=== PATIENT | male | born 1955 | race Caucasian/White ===

== ENCOUNTER → 2024-03-07 07:57 | Outpatient (CLI) | payer MEDICARE, OTHER, SELFPAY ==
--- NOTE | 2024-03-07 | DI.RAD.S_ITS ---
PROCEDURE: XR FOOT RT MIN 3V INDICATIONS: Metatarsalgia TECHNIQUE: 3 views of the foot were acquired. COMPARISON: [facility], , XR FOOT LT MIN 3V, 03/07/2024, 8:14. FINDINGS: Bones: No fractures or dislocations. Mild 1st MTP joint space narrowing. Normal alignment on weight-bearing view. No suspicious bony lesions. Soft tissues: No tibiotalar joint effusion. Achilles tendon appears normal. IMPRESSION: 1. No acute bony abnormality. 2. Mild 1st MTP joint space narrowing. Dictated by: Diana Smith M.D. on 03/07/2024 at 14:40 Approved by: Diana Smith M.D. on 03/07/2024 at 14:41
--- NOTE | 2024-03-07 | DI.RAD.S_ITS ---
PROCEDURE: XR FOOT LT MIN 3V INDICATIONS: Metatarsalgia TECHNIQUE: 3 views of the foot were acquired. COMPARISON: [facility], , XR FOOT RT MIN 3V, 03/07/2024, 8:14. FINDINGS: Bones: No fractures or dislocations. Normal alignment on weight-bearing view. Joint spaces are maintained. No suspicious bony lesions. Soft tissues: No tibiotalar joint effusion. Achilles tendon appears normal. IMPRESSION: No acute bony abnormality. No significant degenerative changes. Dictated by: Diana Smith M.D. on 03/07/2024 at 14:41 Approved by: Diana Smith M.D. on 03/07/2024 at 14:42
== END ==
LOC: RAD 08:01
PROVIDERS: PCP Family Medicine; Referring Provider Podiatrist Foot & Ankle Surgery; Visit Provider Podiatrist Foot & Ankle Surgery
DX: M77.41 Metatarsalgia, right foot (principal); M77.42 Metatarsalgia, left foot
CPT/HCPCS: 73630

== ENCOUNTER 2024-07-01 14:16 | Emergency (ER) | payer MEDICARE, OTHER, SELFPAY ==
[2024-07-01] VITALS (13 sets, daily range): BP systolic 144–170; BP diastolic 76–95; PULSE 85–107; RESP 13–22; TEMP 36.9; O2SAT 95–100; BMI 29.0
--- NOTE | 2024-07-01 14:25 | DI.RAD.S_ITS ---
PROCEDURE: XR CHEST 1V INDICATIONS: chest pain TECHNIQUE: One view of the chest was acquired. COMPARISON: None. FINDINGS: Surgical changes and devices: None. Lungs and pleura: Lungs are clear. No pleural effusions or pneumothorax. Mediastinum: Mediastinal contours appear normal. Heart size is normal. Bones and chest wall: No suspicious bony lesions. Overlying soft tissues appear unremarkable. IMPRESSION: No acute cardiopulmonary abnormality is seen. Dictated by: Juvencio Dubon M.D. on 07/01/2024 at 15:22 Approved by: Juvencio Dubon M.D. on 07/01/2024 at 15:22
--- NOTE | 2024-07-01 14:40 | EKG_ITS ---
[id number], [place] [address] Test Date: 2024-07-01 Pat Name: Lai Lai Department: [facility] Room: Gender: Male Drier Operator: ASHLEY : 1955 Requested By: Order Number: [id number] Reading MD: Preet Larios MD Measurements Intervals [place] Rate: 88 P: 53 ME: 150 QRS: 19 QRSD: 94 T: 15 QT: 352 QTc: 425 Interpretive Statements Normal sinus rhythm with sinus arrhythmia Electronically Signed On 07-01-2024 15:08:49 PST by Preet Larios MD
[2024-07-01 15:06] LABS: Prothrombin Time 11.5 SECONDS (9.4-12.5)
[2024-07-01 15:09] LABS: PTT Partial Thromboplastin Tim 34 SECONDS (25.1-36.5)
[2024-07-01 15:14] LABS: Alanine Aminotransferase 35 IU/L (<50); Albumin 4.7 g/dL (3.5-5.0); Albumin Globulin Ratio 1.4 (1.0-2.8); Alkaline Phosphatase 53 U/L (38-126); Aspartate Aminotransferase 30 IU/L (17-59); BUN Creatinine Ratio 16.1 (6-22); Bilirubin Total 0.6 mg/dL (0.2-1.3); Blood Urea Nitrogen 14 mg/dL (9-20); Calcium 9.9 mg/dL (8.4-10.2); Carbon Dioxide 23 mmol/L (22-32); Chloride 106 mmol/L (98-107); Creatine Kinase 145 U/L (55-170); Estimated Glomerular Filt Rate > 60 mL/min (>60); Globulin 3.4 g/dL (1.7-4.1); Glucose 118 mg/dL (80-110); HEMOLYSIS < 15 (0-50); Lipase 66 U/L (23-300); Magnesium 1.6 mg/dL (1.6-2.3); Potassium 3.8 mmol/L (3.4-5.1); Sodium 140 mmol/L (137-145); Total Protein 8.1 g/dL (6.3-8.2)
--- NOTE | 2024-07-01 15:18 | DI.CT.S_ITS ---
PROCEDURE: CT ANGIO HEAD AND NECK INDICATIONS: dizziness, greater than 12 hours TECHNIQUE: After the administration of intravenous contrast, 1 mm thick sections acquired from the aortic arch through the [place] of [place]. 3-dimensional eompinn-wgqegwnfy-ppishsjmlj (MIP) and/or volume rendering reformats were acquired of the central intracranial vasculature and neck separately. For radiation dose reduction, the following was used: automated exposure control, adjustment of mA and/or kV according to patient size. COMPARISON: [facility], CT, CT HEAD/BRAIN WO CON, 07/01/2024, 16:01. FINDINGS: Image quality: Diagnostic. BRAIN: CSF spaces: Ventricles are normal in size and shape. Basal cisterns are patent. No extra-axial fluid collections. Brain: No significant abnormality of the brain can be seen. Skull and face: Calvarium and facial bones appear intact, without suspicious lesions. Orbits appear normal. Sinuses: Sinuses and mastoids are clear. HEAD CT ANGIOGRAPHY: Anterior circulation: Intracranial internal carotid arteries are normal in size and flow. The flow within the paired anterior cerebral arteries is normal and symmetric. The flow within the middle cerebral arteries is normal and symmetric. The anterior communicating artery is seen. No aneurysms are seen. Posterior circulation: Visualized portions of the vertebral arteries demonstrate normal caliber, and join to form a normal appearing basilar artery. Flow within the posterior cerebral arteries is normal and symmetric. No aneurysms are seen. NECK CT ANGIOGRAPHY: Carotid system: The great vessels demonstrate a conventional anatomy as they arise from the aortic arch. The origins of the common carotid arteries appear patent. The common carotid arteries demonstrate normal caliber and courses. The bifurcation regions are both widely patent. Mild bilateral proximal internal carotid artery stenotic disease, less than 50%. Posterior circulation: The origins of the vertebral arteries both appear widely patent. The more superior extracranial portions of both vertebral arteries also demonstrate normal courses and calibers. They join to form a normal appearing basilar artery. Soft tissues: Visualized neck soft tissues demonstrate no suspicious abnormalities. Bones: No suspicious bony lesions. Visualized cervical spine appears normally aligned. IMPRESSION: No significant intracranial arterial abnormality is seen. No significant abnormality is seen within the arteries of the neck. Any quantitative measurements of stenosis were performed using NASCET criteria. Dictated by: Juvencio Dubon M.D. on 07/01/2024 at 16:20 Approved by: Juvencio Dubon M.D. on 07/01/2024 at 16:22
--- NOTE | 2024-07-01 15:18 | DI.CT.S_ITS ---
PROCEDURE: CT HEAD/BRAIN WO CON INDICATIONS: dizziness, greater than 12 hours TECHNIQUE: Noncontrast 4.5 mm thick angled axial sections acquired from the foramen magnum to the vertex, with coronal and sagittal reformats. For radiation dose reduction, the following was used: automated exposure control, adjustment of mA and/or kV according to patient size. COMPARISON: None. FINDINGS: Image quality: Diagnostic. CSF spaces: Basal cisterns are patent. No extra-axial fluid collections. The ventricles are symmetric in size and shape. Brain: No intracranial bleeds or masses. There is cerebral volume loss for age, with resultant ventricular and sulcal prominence. There are periventricular and deep white matter chronic small vessel ischemic changes. There is intracranial internal carotid artery atherosclerosis. Skull and face: Calvarium and visualized facial bones appear intact, without suspicious lesions. Sinuses: Visualized sinuses and mastoids are clear. IMPRESSION: No acute intracranial pathology. Dictated by: Juvencio Dubon M.D. on 07/01/2024 at 16:19 Approved by: Juvencio Dubon M.D. on 07/01/2024 at 16:20
[2024-07-01 15:25] LABS: NT-proBNP (BNP-Adult 18+) 102 pg/mL (<125); Troponin I < 0.012 ng/mL (0.01-0.034)
[2024-07-01 15:28] LABS: Add Manual Diff / Slide Review NO; Basophils Absolute Auto 0 /uL (0-100); Basophils Percent Auto 0.3 % (0-2); Eosinophils Absolute Auto 0 /uL (0-450); Eosinophils Percent Auto 0.2 % (2-4); Hematocrit 43.3 % (41-53); Hemoglobin 14.8 g/dL (13.5-17.5); Lymphocytes Absolute Auto 1200 /uL (1100-4500); Lymphocytes Percent Auto 15.1 % (25-40); Mean Corpuscular HGB Conc 34.1 % (30-36); Mean Corpuscular Hemoglobin 32.3 PG (26-34); Mean Corpuscular Volume 94.7 fL (80-100); Monocytes Absolute Auto 600 /uL (0-900); Monocytes Percent Auto 7.4 % (3-14); Neutrophils Absolute Auto 6100 /uL (1500-7000); Platelet Count 206 X10^3/uL (150-400); Red Blood Cell Count 4.58 X10^6/uL (4.5-5.9); Red Cell Distribution Width 13.2 % (11.6-14.8); White Blood Cell Count 7.9 X10^3/uL (4.5-11.0)
--- NOTE | 2024-07-01 17:19 | ED_ITS ---
HPI - Dizziness General Chief Complaint: Dizziness Stated Complaint: HBP, rapid pulse, dizziness Time Seen by Provider: 07/01/24 15:17 Source: patient, RN notes reviewed and old records reviewed Mode of arrival: Ambulatory Limitations: no limitations History of Present Illness HPI Narrative: 69-year-old male presents with complaint of sensation of dizziness. Patient states yesterday he woke up when he rolled over in bed and felt like the room was spinning. He states that is like it is spinning and front of his eyes. Movements such as bending over and moving his head side to side quickly exacerbate his symptoms. Yesterday only lasted for a couple hours and then resolved. This morning when he woke up had recurrent symptoms that has been more persistent throughout the day. He has been able to perform physical activity including mowing his lawn but continued to have symptoms. Denies headache, denies vision changes, no numbness, tingling or weakness. Feels a little off balance but able to ambulate. Denies any chest pain or shortness of breath. Has had some nausea with symptoms are intense. Denies any vomiting. Has had some mild diarrhea recently. No cough cold or cough symptoms. No hearing changes. Patient has not had similar symptoms in the past. States he takes fluoxetine daily. Has a history of prior appendectomy and had angioplasty of his renal artery remotely. No known drug allergies. No tobacco, has 4 beers daily, no recreational drugs besides occasional THC. Patient's primary care physician is Dr. Bonner. He is accompanied by his family. Related Data Home Medications Medication Instructions Recorded Confirmed floxetine PO 03/14/21 03/14/21 Previous Rx's Medication Instructions Recorded benzonatate 100 mg capsule 100 mg PO TID PRN cough #21 caps 03/14/21 (Usama Tejeda) meclizine 25 mg chewable tablet 25 mg PO QID PRN dizziness #10 tabs 07/01/24 Allergies Allergy/AdvReac Type Severity Reaction Status Date / Time No Known Drug Allergies Allergy Verified 07/01/24 14:19 Review of Systems Review of Systems ROS Unobtainable: All systems reviewed & are unremarkable except as noted in HPI and below Patient History Social History Smoking Status: Never smoker Smoking Status: Never smoker alcohol intake frequency: 3 or more drinks per day Alcohol type: beer Substance Use Type: marijuana Exam Narrative Exam Narrative: GEN: well nourished, well appearing male, alert and oriented x 3, patient appears to be in mild distress. HEENT: Atraumatic, pupils are equal round reactive to light, extraocular movements are intact, nares are clear, TMs are clear with no fluid, there is no conjunctival pallor. Throat is clear without any exudates, erythema, tonsillar enlargement or uvular deviation, no facial droop HEART: Regular rate and rhythm without murmur, clicks, rubs. Pulses are equal in upper and lower extremities LUNGS:Lungs clear to auscultation, no wheezes, rales, crackles, chest moves symmetrically ABD:bowel sounds normal, soft, non-tender, no guarding, rebound, rigidity, no masses noted, no hepatosplenomegaly :No CVA tenderness MSCL: Non-tender, no muscle atrophy, muscles strength 5/5 upper and lower extremities, full range of motion, normal gait NEURO:CN 2-12 intact, sensation normal, finger nose finger test normal, heel lang test normal. Initial Vital Signs Initial Vital Signs: Vital Signs Temperature 98.4 F 07/01/24 14:19 Pulse Rate 106 H 07/01/24 14:19 Respiratory Rate 17 07/01/24 14:19 Blood Pressure 162/89 H 07/01/24 14:19 Pulse Oximetry 100 07/01/24 14:19 Oxygen Delivery Method Room Air 07/01/24 14:19 Course Orders Ordered: ED Orders 07/01/24 14:25 XR chest 1V Stat EKG-12 Lead Stat 07/01/24 14:48 Comprehensive Metabolic Panel Stat Lipase Stat Magnesium Stat NT-proBNP (BNP-Adult 18+) Stat PTT Partial Thromboplastin Malik Stat Prothrombin Time INR Stat Troponin & CK Cardiac Panel Stat 07/01/24 15:08 Complete Blood Count AUTO DIFF Stat 07/01/24 15:18 CT angio head and neck Stat CT head/brain wo con Stat Discontinued Medications Meclizine HCl (Meclizine Hcl 12.5 Mg Tablet) 50 mg PO NOW ONE Stop: 07/01/24 17:41 Last Admin: 07/01/24 18:11 Dose: 50 mg Documented By: MADDIE Vital Signs Vital signs: Vital Signs - 8 hr 07/01/24 14:19 07/01/24 14:31 07/01/24 15:00 Temperature 98.4 F Pulse Rate 106 H 107 H 91 H Respiratory Rate 17 19 15 Blood Pressure 162/89 H Pulse Oximetry 100 97 95 Oxygen Delivery Method Room Air 07/01/24 15:01 07/01/24 15:01 07/01/24 15:30 Temperature Pulse Rate 91 H 85 Respiratory Rate 21 16 Blood Pressure 161/95 H Pulse Oximetry 96 96 Oxygen Delivery Method Room Air 07/01/24 15:30 07/01/24 15:46 07/01/24 15:46 Temperature Pulse Rate 88 Respiratory Rate 16 Blood Pressure 162/83 H 168/76 H Pulse Oximetry 97 Oxygen Delivery Method 07/01/24 16:05 07/01/24 16:30 07/01/24 16:51 Temperature Pulse Rate 98 H 93 H Respiratory Rate 22 14 Blood Pressure 144/89 H Pulse Oximetry 97 95 Oxygen Delivery Method 07/01/24 16:51 07/01/24 17:00 07/01/24 17:00 Temperature Pulse Rate 89 91 H Respiratory Rate 22 Blood Pressure 170/87 H Pulse Oximetry 96 95 Oxygen Delivery Method 07/01/24 17:07 07/01/24 17:07 07/01/24 17:30 Temperature Pulse Rate 89 87 Respiratory Rate 18 22 Blood Pressure 156/91 H Pulse Oximetry 97 96 Oxygen Delivery Method 07/01/24 18:00 Temperature Pulse Rate 90 Respiratory Rate 13 Blood Pressure Pulse Oximetry 96 Oxygen Delivery Method MDM - Dizziness Lab Data 07/01/24 15:08 07/01/24 14:48 Labs: Lab Results 07/01/24 07/01/24 Range/Units 14:48 15:08 WBC 7.9 (4.5-11.0) X10^3/uL RBC 4.58 (4.5-5.9) X10^6/uL Hgb 14.8 (13.5-17.5) g/dL Hct 43.3 (41-53) % MCV 94.7 (80-100) fL MCH 32.3 (26-34) PG MCHC 34.1 (30-36) % RDW 13.2 (11.6-14.8) % Plt Count 206 (150-400) X10^3/uL Neut % (Auto) 77.0 H (50-75) % Lymph % (Auto) 15.1 L (25-40) % Reeves % (Auto) 7.4 (3-14) % Eos % (Auto) 0.2 L (2-4) % Baso % (Auto) 0.3 (0-2) % Neut # (Auto) 6100 (7159-2964) /uL Lymph # (Auto) 1200 (0596-2397) /uL Reeves # (Auto) 600 (0-900) /uL Eos # (Auto) 0 (0-450) /uL Baso # (Auto) 0 (0-100) /uL PT 11.5 (9.4-12.5) SECONDS INR 1.0 (0.9-1.3) APTT 34 (25.1-36.5) SECONDS Sodium 140 (137-145) mmol/L Potassium 3.8 (3.4-5.1) mmol/L Chloride 106 (98-107) mmol/L Carbon Dioxide 23 (22-32) mmol/L BUN 14 (9-20) mg/dL Creatinine 0.87 (0.66-1.25) mg/dL Estimated GFR > 60 (>60) mL/min BUN/Creatinine Ratio 16.1 (6-22) Glucose 118 H (80-110) mg/dL Calcium 9.9 (8.4-10.2) mg/dL Magnesium 1.6 (1.6-2.3) mg/dL Total Bilirubin 0.6 (0.2-1.3) mg/dL AST 30 (17-59) IU/L ALT 35 (<50) IU/L Alkaline Phosphatase 53 (38-126) U/L Total Creatine Kinase 145 (55-170) U/L Troponin I < 0.012 (0.01-0.034) ng/mL NT-Pro-B Natriuret Pep 102 (<125) pg/mL Total Protein 8.1 (6.3-8.2) g/dL Albumin 4.7 (3.5-5.0) g/dL Globulin 3.4 (1.7-4.1) g/dL Albumin/Globulin Ratio 1.4 (1.0-2.8) Lipase 66 (23-300) U/L Imaging Data Chest x-ray: Radiologist's Impression: Close Head/Neck CTA (Signed) Juvencio Dubon - 07/01/[address] (Signed) Juvencio Dubon - 07/01/24 Chest X-Ray (Signed) Juvencio Dubon - 07/01/24 Foot X-Ray (Signed) Diana Smith - 03/07/24 Foot X-Ray (Signed) Diana Smith - 03/07/24 Launch?Image [address] [address] XRay Report Signed Patient: Lai Lai MR#: [id number] : 1955 Acct:[id number] Age/Sex: 69 / M Date of Service: 07/01/24 Loc: ED Accession Number: [id number] Procedure: XR chest 1V Ordering Provider: Lesvia Mak D.O. PROCEDURE: XR CHEST 1V INDICATIONS: chest pain TECHNIQUE: One view of the chest was acquired. COMPARISON: None. FINDINGS: Surgical changes and devices: None. Lungs and pleura: Lungs are clear. No pleural effusions or pneumothorax. Mediastinum: Mediastinal contours appear normal. Heart size is normal. Bones and chest wall: No suspicious bony lesions. Overlying soft tissues appear unremarkable. IMPRESSION: No acute cardiopulmonary abnormality is seen. Dictated by: Juvencio Dubon M.D. on 07/01/2024 at 15:22 Approved by: Juvencio Dubon M.D. on 07/01/2024 at 15:22 CT scan - head: Radiologist's Impression: [address] [address] [address] Scan Report Signed Patient: Lai Lai MR#: [id number] : 1955 Acct:[id number] Age/Sex: 69 / M Date of Service: 07/01/24 Loc: ED Accession Number: [id number] Procedure: CT head/brain wo con Ordering Provider: Lesvia Mak D.O. PROCEDURE: CT HEAD/BRAIN WO CON INDICATIONS: dizziness, greater than 12 hours TECHNIQUE: Noncontrast 4.5 mm thick angled axial sections acquired from the foramen magnum to the vertex, with coronal and sagittal reformats. For radiation dose reduction, the following was used: automated exposure control, adjustment of mA and/or kV according to patient size. COMPARISON: None. FINDINGS: Image quality: Diagnostic. CSF spaces: Basal cisterns are patent. No extra-axial fluid collections. The ventricles are symmetric in size and shape. Brain: No intracranial bleeds or masses. There is cerebral volume loss for age, with resultant ventricular and sulcal prominence. There are periventricular and deep white matter chronic small vessel ischemic changes. There is intracranial internal carotid artery atherosclerosis. Skull and face: Calvarium and visualized facial bones appear intact, without suspicious lesions. Sinuses: Visualized sinuses and mastoids are clear. IMPRESSION: No acute intracranial pathology. Dictated by: Juvencio Dubon M.D. on 07/01/2024 at 16:19 Approved by: Juvencio Dubon M.D. on 07/01/2024 at 16:20 CTA - brain/neck: Radiologist's Impression: [place] [address] CT Scan Report Signed Patient: Lai Lai MR#: [id number] : 1955 Acct:[id number] Age/Sex: 69 / M Date of Service: 07/01/24 Loc: ED Accession Number: [id number] Procedure: CT angio head and neck Ordering Provider: Lesvia Mak D.O. PROCEDURE: CT ANGIO HEAD AND NECK INDICATIONS: dizziness, greater than 12 hours TECHNIQUE: After the administration of intravenous contrast, 1 mm thick sections acquired from the aortic arch through the [place] of [place]. 3-dimensional qyjagds-cfwdjzdjc-qwpltqlkva (MIP) and/or volume rendering reformats were acquired of the central intracranial vasculature and neck separately. For radiation dose reduction, the following was used: automated exposure control, adjustment of mA and/or kV according to patient size. COMPARISON: [facility], CT, CT HEAD/BRAIN WO CON, 07/01/2024, 16:01. FINDINGS: Image quality: Diagnostic. BRAIN: CSF spaces: Ventricles are normal in size and shape. Basal cisterns are patent. No extra-axial fluid collections. Brain: No significant abnormality of the brain can be seen. Skull and face: Calvarium and facial bones appear intact, without suspicious lesions. Orbits appear normal. Sinuses: Sinuses and mastoids are clear. HEAD CT ANGIOGRAPHY: Anterior circulation: Intracranial internal carotid arteries are normal in size and flow. The flow within the paired anterior cerebral arteries is normal and symmetric. The flow within the middle cerebral arteries is normal and symmetric. The anterior communicating artery is seen. No aneurysms are seen. Posterior circulation: Visualized portions of the vertebral arteries demonstrate normal caliber, and join to form a normal appearing basilar artery. Flow within the posterior cerebral arteries is normal and symmetric. No aneurysms are seen. NECK CT ANGIOGRAPHY: Carotid system: The great vessels demonstrate a conventional anatomy as they arise from the aortic arch. The origins of the common carotid arteries appear patent. The common carotid arteries demonstrate normal caliber and courses. The bifurcation regions are both widely patent. Mild bilateral proximal internal carotid artery stenotic disease, less than 50%. Posterior circulation: The origins of the vertebral arteries both appear widely patent. The more superior extracranial portions of both vertebral arteries also demonstrate normal courses and calibers. They join to form a normal appearing basilar artery. Soft tissues: Visualized neck soft tissues demonstrate no suspicious abnormalities. Bones: No suspicious bony lesions. Visualized cervical spine appears normally aligned. IMPRESSION: No significant intracranial arterial abnormality is seen. No significant abnormality is seen within the arteries of the neck. Any quantitative measurements of stenosis were performed using NASCET criteria. Dictated by: Juvencio Dubon M.D. on 07/01/2024 at 16:20 Approved by: Juvencio Dubon M.D. on 07/01/2024 at 16:22 ECG Data Attestation: I personally reviewed and interpreted this ECG as follows: Interpretation: Sinus rhythm with sinus arrhythmia rate 88 CT 150 QRS of 94 QTC of 425, no acute ST elevation or depression noted. MDM Narrative Medical decision making narrative: 61-year-old male with complaint of vertigo symptoms started yesterday woke up with symptoms, improvement but then woke up this morning with recurrent symptoms that has been more persistent although slowly fatiguing throughout the day. He states it was more intense today than it was yesterday. Patient has no acute neurologic changes NIH of 0. Ambulating without major issue although feels a bit off balance. Discussed with patient his findings today discussed suspicion for stroke was quite low but offered MR brain. Patient defers prefers to return home. We discussed we have not totally ruled out stroke although my suspicion is lower. Did give a dose of meclizine here but patient was improving somewhat already prior to. Gave referral for ENT and discussed return precautions. All questions answered. Patient has been somewhat hypertensive throughout his stay in the 160-[address] shows no acute change Head and neck CTA shows no acute change. Chest x-ray shows no acute change Labs show normal white count, hemoglobin and platelets predominance of neutrophils. Coags are negative electrolytes are normal, BUN 14 creatinine 0.87 glucose is 118 calcium is 9.9 Mag 1.6 LFTs are otherwise negative troponins less than 0.12 with a BNP of 102. EKG shows normal sinus rhythm with sinus arrhythmia. Discharge Plan Departure Patient Disposition: Home Clinical Impression: Vertigo Instructions: DI for Vertigo Activity Restrictions/Additional Instructions: Please follow up with your physician for recheck, if you are having persistent symptoms you can also follow up with ENT. Contact is included below. Take meclizine 1 or 2 tablets every 6 hours as needed for symptoms. Prescription sent to [facility] in [place]. Please return for rapidly worsening symptoms, severe headaches, sudden vision changes, new numbness, tingling or weakness, difficulty with ambulation or movement, persistent vomiting or other new or concerning changes. Prescriptions: New meclizine 25 mg tablet,chewable 25 mg PO QID PRN (Reason: dizziness) Qty: 10 0RF No Action floxetine PO benzonatate [Tessalon Perles] 100 mg capsule 100 mg PO TID PRN (Reason: cough) Qty: 21 0RF Referrals: Darian Bear MD [Physician] - Miguel Ángel Bonner MD [Primary Care Provider] - Stand Alone Forms: Patient Portal/API/Survey
[2024-07-01] MEDS: MECLIZINE HCL 12.5 MG TABLET 50 MG PO (18:11)
== END 2024-07-01 18:21 | disposition home or self-care (01) ==
PROVIDERS: Emergency Provider Emergency Medicine; PCP Family Medicine
DX: R42 Dizziness and giddiness (principal); R07.9 Chest pain, unspecified; I10 Essential (primary) hypertension; I49.8 Other specified cardiac arrhythmias
CPT/HCPCS: 36415; 70450; 70496; 70498; 71045; 80053; 82550; 83690; 83735; 83880; 84484; 85025; 85610; 85730; 93005; 93010; 99284

== ENCOUNTER → 2024-10-17 15:16 | Outpatient (CLI) | payer MEDICARE, OTHER, SELFPAY ==
--- NOTE | 2024-10-17 15:19 | DI.MRI.S_ITS ---
PROCEDURE: MR FOOT RT WO CON INDICATIONS: METATARSALGIA BILATERAL FEET TECHNIQUE: Multiphasic, multisequence MRI of the forefoot was performed, without intravenous contrast administration. COMPARISON: [facility], CR, XR FOOT RT MIN 3V, 03/07/2024, 8:14. FINDINGS: Image quality: Excellent. Bones: The marrow signal is within normal limits. There is no acute fracture or dislocation. Joints: Mild 1st MTP osteoarthritis (02/15). Otherwise, the joint spaces are preserved. There is no significant joint effusion in the field of view. Muscles: Overall, the plantar muscle bulk is preserved without any denervation change. Tendons: The visualized flexor and extensor tendon contours are within normal limits. Ligaments: The Lisfranc ligament complex is preserved. The medial and lateral collateral, 1st metatarsosesamoid, and 1st inter sesamoid ligaments are intact. Plantar plates: The plantar plates are intact on the sagittal sequences. Plantar fascia: The visualized bands of the plantar fascia are intact. Other soft tissues: No other acute abnormality. IMPRESSION: Mild 1st MTP osteoarthritis. Otherwise, no acute MR abnormality of the right foot. Dictated by: Donato Mccormick M.D. on 10/20/2024 at 20:29 Approved by: Donato Mccormick M.D. on 10/20/2024 at 20:33
--- NOTE | 2024-10-17 15:19 | DI.MRI.S_ITS ---
PROCEDURE: MRFOOT LT WO CON INDICATIONS: METATARSALGIA BILATERAL FEET TECHNIQUE: Multiphasic, multisequence MRI of the forefoot was performed, without intravenous contrast administration. COMPARISON: [facility], MR, MR FOOT RT WO CON, 10/17/2024, 15:25. [facility], CR, XR FOOT LT MIN 3V, 03/07/2024, 8:14. FINDINGS: Image quality: Excellent. Bones: The marrow signal is within normal limits. There is no acute fracture or dislocation. Joints: The joint spaces are preserved. There is no significant joint effusion in the field of view. Muscles: Overall muscle bulk is preserved without denervation change. Tendons: The visualized flexor and extensor tendons are intact. Ligaments: The Lisfranc ligament complex, medial and lateral collateral, 1st metatarsosesamoid, and 1st intersesamoid ligaments are intact. Plantar plates: The plantar plates are intact on the sagittal sequences. Plantar fascia: The visualized bands of the plantar fascia are intact. Other soft tissues: No other acute abnormality. No perineural fibrosis. IMPRESSION: No acute MR abnormality of the left foot. Dictated by: Donato Mccormick M.D. on 10/20/2024 at 20:33 Approved by: Donato Mccormick M.D. on 10/20/2024 at 20:37
== END ==
LOC: MRI 15:17
PROVIDERS: PCP Family Medicine; Referring Provider Podiatrist Foot & Ankle Surgery; Visit Provider Podiatrist Foot & Ankle Surgery
DX: M77.41 Metatarsalgia, right foot (principal); M77.42 Metatarsalgia, left foot; M19.071 Primary osteoarthritis, right ankle and foot
CPT/HCPCS: 73718